=== PATIENT | female | born 2000 | race African-American/Black ===

== ENCOUNTER 2022-02-09 14:49 | Emergency (ER) | payer OTHER ==
[~2022-02-09] VITALS: Ht 167.6 cm; Wt 95.5 kg
[2022-02-09 15:09] VITALS: BP 118/87
[2022-02-09] MEDS ORDERED: LIDOCAINE 1% 10 ML VIAL SQ ONE (15:30)
[2022-02-09] MEDS ORDERED: LIDOCAINE 2% 5 ML JELLY TP ONE (15:45)
[2022-02-09] MEDS ORDERED: PERTUSS(ACELL),DIPH,TET VAC/PF 0.5 ML SYRINGE IM. ONE (15:45)
[2022-02-09] MEDS ORDERED: LIDOCAINE/PF 1% 5 ML VIAL SQ ONE (15:45)
== END 2022-02-09 17:49 | disposition home or self-care (01) ==
LOC: EMS 14:49
DX: S91.112A Laceration without foreign body of left great toe without damage to nail, initial encounter (principal); W23.1XXA Caught, crushed, jammed, or pinched between stationary objects, initial encounter; Y93.39 Activity, other involving climbing, rappelling and jumping off; Y92.89 Other specified places as the place of occurrence of the external cause; Y99.8 Other external cause status
CPT/HCPCS: 12002; 90471; 90715; 99283; J2001